=== PATIENT | male | born 1980 | race Caucasian/White ===

== ENCOUNTER 2024-12-08 13:53 | Emergency (ER) | payer BC, SELFPAY ==
[2024-12-08] VITALS (21 sets, daily range): BP systolic 123–154; BP diastolic 76–95; PULSE 75–91; RESP 12–20; TEMP 36.5–36.8; O2SAT 96–100
--- NOTE | ~2024-12-08 | XR_ITS ---
EXAMINATION: XR chest 1V portable DATE: 12/08/2024 14:25 INDICATION: Chest pain and throbbing left arm TECHNIQUE: frontal view of the chest was obtained. COMPARISON: Chest radiograph dated 04/10/2022 FINDINGS: The lungs are clear with no focal airspace opacities, pulmonary edema, pleural effusion or pneumothor ax. The cardiomediastinal silhouette is normal. Visualized bones and soft tissues are unremarkable. IMPRESSION: 1. No acute cardiopulmonary disease. Reviewed, dictated and finalized at location B. GY EFFICIENT SITE MANAGER
--- NOTE | 2024-12-08 14:03 | ED_ITS ---
HPI - Chest Pain General Chief Complaint: Chest Pain Stated Complaint: chest pain Time Seen by Provider: 12/08/24 14:03 Source: patient Mode of arrival: ambulatory Limitations: no limitations History of Present Illness HPI narrative: 44-year-old male with a history of smoking, Chronic anxiety, hypertension, maxillary sinusitis, chronic low back pain with L5 radiculopathy presents to the ED with a 3 day history of -- chest pain which starts on both sides of the chest and radiates to the front. He feels as squeezing like sensation of his chest. The pain usually lasts 1-2 minutes with spontaneous resolution. The pain comes on while he is resting. The pain radiates his down both his arms. He continues to have left arm numbness/weakness. He has had total 3 episodes of this pain. The 1st 2 episodes happened 3 days ago the last episode was noted today while he was sitting in his office. The pain lasted 1-2 minutes with spontaneous resolution. Pain is described as an aching feeling. No prior episodes of chest pain. MD complaint: chest pain Onset (ago): day(s) ( Three days) Timing of current episode: episodic Prior episodes: No Onset: during rest Pain location: lateral Pain radiation: right arm and left arm Quality: aching Relieving factors: nothing Exacerbating factors: nothing Treatment prior to arrival: none Risk Factors Coronary artery disease risk factors: smoking history Related Data Allergies Allergy/AdvReac Type Severity Reaction Status Date / Time No Known Allergies Allergy Verified 12/08/24 13:59 Review of Systems 2 Review of Systems: All systems reviewed & are unremarkable except as noted in HPI and below Constitutional: Constitutional: Reports as per HPI and Reports no additional constitutional complaints Eyes: Eyes: Reports as per HPI and Reports no additional eye complaints ENT: Reports system reviewed and no additional complaints, except as documented and Reports as per HPI Cardiovascular: Cardiovascular: Reports as per HPI, Reports no additional cardiovascular complaints and Reports chest pain Respiratory: Respiratory: Reports as per HPI and Reports no additional respiratory complaints Gastrointestinal: Gastrointestinal: Reports as per HPI and Reports no additional gastrointestinal complaints Genitourinary: Genitourinary: Reports no additional male genitourinary complaints and Reports as per HPI Musculoskeletal: Musculoskeletal: Reports no additional musculoskeletal complaints and Reports as per HPI Integumentary/Breasts: Skin/Breast: Reports system reviewed and no additional complaints, except as docu and Reports as per HPI Neurologic: Reports system reviewed and no additional complaints, except as documented and Reports as per HPI Psychiatric: Psychiatric: Reports no additional psychiatric complaints and Reports as per HPI Endocrine: Endocrine: Reports no additional endocrine complaints and Reports as per HPI Hematologic/Lymphatic: Hematologic/Lymphatic: Reports no additional hematologic/lymphatic complaints and Reports as per HPI Allergic/Immunologic: Allergic/Immunologic: Reports no additional allergic/immunologic complaints and Reports as per HPI Exam 2 Narrative: blood pressure 154/94. Temperature of 36.5?. Oxygen saturation of 97% on room air. Const: General: healthy appearing and no acute distress Nutritional Appearance: well nourished Orientation/consciousness: patient oriented x3 Limitations: no limitations HENMT: Head: normal to inspection Ears: external ears normal F alisa/Nose/Sinus: Normal external nose present Face and sinus: normal facial exam Mouth: Yes Normal oral and palatal mucosa present Throat: posterior oropharynx normal ( Pharyngeal erythema) Eyes: Conjunctivae: conjunctivae normal Pupils: Equal, round and reactive pupils present EOM: EOMs intact bilaterally Direct Ophthalmoscopy: no photophobia Neck: Neck: normal visual inspection, no lymphadenopathy and no meningeal signs Chest: Chest palpation & inspection: normal inspection of the chest Resp: Effort & Inspection: normal respiratory effort Auscultation: clear to auscultation bilaterally Cardio: Rate: regular rate Rhythm: regular rhythm GI: Auscultation: normal bowel sounds Other: no tenderness/rigidity /rebound. : General: Yes no CVA tenderness Back/Spine/Pelvis: Back: no CVA tenderness Skin: General skin exam: normal color Rashes: no rashes Wounds: no wounds Neuro: General: patient oriented x3 Cranial nerves: Yes Nystagmus not present Speech: normal speech Gait exam (Neuro): Normal gait present Extrem: General: normal to inspection and no clubbing, cyanosis or edema Psych: Mental Status: mental status grossly normal Affect: normal affect Attitude: cooperative Course Course Emergency Course: Chest pain-- EKG did not show any acute findings. The patient was noted to have a normal troponin. The patient is not tachycardic / has a normal respiratory rate of 19 an oxygen saturation of 97% on room air. chest x-ray did not show any acute findings anxiety Vital Signs Vital signs: Vital Signs Temperature 36.5 C 12/08/24 13:53 Pulse Rate 90 12/08/24 13:53 Respiratory Rate 20 01/15/25 13:53 Blood Pressure 154/94 H 12/08/24 13:53 Pulse Oximetry 97 12/08/24 13:53 Oxygen Delivery Room Air 12/08/24 13:53 Temperature 36.5 C 12/08/24 13:53 Pulse Rate 79 12/08/24 15:02 Respiratory Rate 19 12/08/24 15:02 Blood Pressure 127/91 H 12/08/24 14:46 Pulse Oximetry 97 12/08/24 15:02 Oxygen Delivery Room Air 12/08/24 13:55 MDM - Chest Pain MDM Narrative Medical decision making narrative: Chest wall pain anxiety Differential Diagnosis Differential diagnosis: Likely pneumothorax and stable angina Medical Records Data Attestation: I reviewed the patient's medical records. Lab Data 12/08/24 14:18 12/08/24 14:18 Labs: Lab Results 12/08/24 Range/Units 14:18 WBC 13.0 H (4.8-10.8) K/mm3 RBC 4.79 (4.70-6.10) M/mm3 Hgb 14.7 (14.0-18.0) g/dL Hct 43.1 (40.0-54.0) % MCV 90.0 (78.0-102.0) fL MCH 30.7 (27.0-31.0) pg MCHC 34.1 (32-36) g/dL RDW 12.0 (11.6-14.4) % Plt Count 243 (150-420) K/mm3 MPV 10.3 (8.7-11.0) fl Immature Gran % (Auto) 0.2 H (0.0-0.0) % Neut % (Auto) 51.7 (50.0-70.0) % Lymph % (Auto) 42.1 H (18.0-42.0) % [place] % (Auto) 4.9 (2.0-11.0) % Eos % (Auto) 0.9 L (1.0-6.0) % Baso % (Auto) 0.2 (0.0-1.0) % Lymph # (Auto) 5.46 H (1.10-4.50) K/mm3 [place] # (Auto) 0.64 (0.10-0.90) K/mm3 Eos # (Auto) 0.12 (0.02-0.50) K/mm3 Baso # (Auto) 0.03 (0.00-0.10) K/mm3 Abs Immat Gran (auto) 0.03 H (0.00-0.00) K/mm3 Absolute Neuts (auto) 6.69 (1.70-7.20) K/mm3 Absolute Nucleated RBC 0.00 (0.00-0.00) K/mm3 Nucleated RBC % 0.0 (0-0.0) % PT 10.6 (9.50-12.1) Seconds INR 1.0 APTT 27.2 (23.9-30.70) Sec Sodium 139 (136-145) mmol/L Potassium 4.0 (3.5-5.1) mmol/L Chloride 104 (98-108) mmol/L Carbon Dioxide 30 (21-32) mmol/L Anion Gap 5 (4-12) mmol/L BUN 15 (7-18) mg/dL Creatinine 1.26 (0.70-1.30) mg/dL Estim Creat Clear Calc 83 ml/min Estimated GFR > 60 (59 - ) Glucose 132 H (70-99) mg/dL Calculated Osmolality 290 (285-295) mOsm/kg Lactic Acid 1.3 (0.4-2.0) mmol/L Calcium 9.2 (8.5-10.1) mg/dL Total Bilirubin 0.4 (0.00-1.00) mg/dL AST 15 (15-37) U/L ALT 41 (16-63) U/L Alkaline Phosphatase 82 (46-116) U/L Troponin I < 4.0 (0.00-60.4) ng/L Total Protein 7.6 (6.4-8.2) g/dL Albumin 4.0 (3.4-5.0) g/dL ECG Data EKG #1: ECG completion date: 12/08/24 ECG completion time: 13:55 Interpretation: normal sinus rhythm normal axis. No ST elevation. Discharge Plan Discharge Clinical Impression: Atypical chest pain, Anxiety Patient Disposition: Home, Self-Care Condition: Stable Instructions: Antibiotic Form, Anxiety (ED), Chest Wall Pain (ED) Patient Language: Irish Follow-up/Referrals: Lenny Barcenas MD [Primary Care Provider] - Time of Disposition: 15:38
[2024-12-08] MEDS: ASPIRIN 81 MG CHEWABLE TABLET 324 MG PO (14:22)
[2024-12-08 14:27] LABS: Basophils Absolute Auto 0.03 K/mm3 (0.00-0.10); Basophils Percent Auto 0.2 % (0.0-1.0); Eosinophils Absolute Auto 0.12 K/mm3 (0.02-0.50); Eosinophils Percent Auto 0.9 % (1.0-6.0); Hematocrit 43.1 % (40.0-54.0); Hemoglobin 14.7 g/dL (14.0-18.0); Immature Granulocyte Absolute 0.03 K/mm3 (0.00-0.00); Immature Granulocyte Percent A 0.2 % (0.0-0.0); Lymphocytes Absolute Auto 5.46 K/mm3 (1.10-4.50); Lymphocytes Percent Auto 42.1 % (18.0-42.0); Mean Corpuscular HGB Conc 34.1 g/dL (32-36); Mean Corpuscular Hemoglobin 30.7 pg (27.0-31.0); Mean Platelet Volume 10.3 fl (8.7-11.0); Monocytes Absolute Auto 0.64 K/mm3 (0.10-0.90); Monocytes Percent Auto 4.9 % (2.0-11.0); Neutrophils Absolute Auto 6.69 K/mm3 (1.70-7.20); Neutrophils Percent Auto 51.7 % (50.0-70.0); Platelet Count Result 243 K/mm3 (150-420); Red Blood Count 4.79 M/mm3 (4.70-6.10)
[2024-12-08 14:42] LABS: Partial Thromboplastin Time 27.2 Sec (23.9-30.70); Prothrombin Time 10.6 Seconds (9.50-12.1)
[2024-12-08 14:44] LABS: Lactic Acid Reflex 1.3 mmol/L (0.4-2.0)
[2024-12-08 14:51] LABS: Alanine Aminotransferase 41 U/L (16-63); Alkaline Phosphatase 82 U/L (46-116); Anion Gap 5 mmol/L (4-12); Aspartate Amino Transferase 15 U/L (15-37); Bilirubin,Total 0.4 mg/dL (0.00-1.00); Blood Urea Nitrogen 15 mg/dL (7-18); Calcium 9.2 mg/dL (8.5-10.1); Carbon Dioxide 30 mmol/L (21-32); Chloride 104 mmol/L (98-108); Estimated CRCL calculation 83 ml/min; Estimated Glomerular Filt Rate > 60; Glucose 132 mg/dL (70-99); Osmolality Calculated 290 mOsm/kg (285-295); Sodium 139 mmol/L (136-145); Total Protein 7.6 g/dL (6.4-8.2)
[2024-12-08 14:54] LABS: Troponin I < 4.0 ng/L (0.00-60.4)
--- NOTE | 2024-12-08 15:54 | ECG_ITS ---
Test Date: 2024-12-08 13:55:36 Measurements Intervals [place] Rate: 88 P: 45 DC: 160 QRS: 51 QRSD: 98 T: 51 QT: 339 QTc: 411 Interpretive Statements SINUS RHYTHM LOW QRS VOLTAGE IN PRECORDIAL LEADS [QRS DEFLECTION < 1.0 mV IN CHEST LEADS] No previous ECG available for comparison Electronically Signed On 12-09-2024 09:15:50 BROADBAND TECHNICIAN by Natanael Ibarra M.D.
== END 2024-12-08 16:15 | disposition home or self-care (01) ==
PROVIDERS: Emergency Provider Internal Medicine Critical Care Medicine; PCP Internal Medicine
DX: R07.89 Other chest pain (principal); F41.9 Anxiety disorder, unspecified; I10 Essential (primary) hypertension
CPT/HCPCS: 36415; 71045; 80053; 83605; 84484; 85025; 85610; 85730; 93005; 99284; A9270

== ENCOUNTER 2024-12-30 17:20 | Emergency (ER) | payer BC, SELFPAY ==
[2024-12-30 17:20] VITALS: BP 130/93; PULSE 109; RESP 18; TEMP 38.5; O2SAT 95
--- OUTSIDE RECORDS SUMMARY | 2024-12-30 17:23 | XMS_ITS | Encounter Summary ---
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
--- OUTSIDE RECORDS SUMMARY | 2024-12-30 17:23 | XMS_ITS | Clinical Summary ---
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 Gender Identity Not on file Sexual Orientation Not on file Plan of Treatment Health Maintenance Due Date Last Done Comments Colorectal Cancer Screening Colonoscopy (10 Years) 1978 Annual Physical 1981 Hepatitis C 1996 DTaP, Tdap and Td Vaccines ( 1 - Tdap) 1997 Hepatitis B Vaccines (1 of 3 - 19+ 3-dose series) 1997 COVID-19 Vaccine (2023-2 5 season) 2024 Influenza Adult (#1) 2024 HPV Vaccines Aged Out No longer eligi ble based on patient's age to complete this topic Meningococcal B Vaccine Aged Out No l onger eligible based on patient's age to complete this topic Meningococcal Vaccine Aged Out No chance anushka eligible based on patient's age to complete this topic Pneumococcal Vaccine: Pediat rics (0 to 5 Years) and At-Risk Patients (6 to 64 Years) Aged Out No longer eligible b ased on patient's age to complete this topic RSV Immunizations Under 20 Months Aged Out No longer eligible based on patient's age to complete this topic
[2024-12-30] MEDS: IBUPROFEN 600 MG TABLET PO (17:26)
--- NOTE | 2024-12-30 17:30 | PC.NURSE ---
covid culture sent to lab
[2024-12-30 17:33] VITALS: O2SAT 95
--- NOTE | 2024-12-30 17:53 | ED.URI ---
HPI - URI/Sore Throat General Chief Complaint: Upper Respiratory Infection Stated Complaint: cold symptoms. Time Seen by Provider: 12/30/24 17:22 Source: patient Mode of arrival: ambulatory Limitations: no limitations History of Present Illness HPI Narrative: this is a 44-year-old male with no significant past medical history presents with a 3 day history of cough congestion nasal congestion body aches headache low-grade fever and chills with no shortness of breath no audible wheezing. MD elicited complaint: fever, cough, rhinorrhea and nasal congestion Onset (ago): day(s) Consistency: constant Severity: moderate Exacerbating factors: nothing Relieving factors: nothing Related Data Allergies Allergy/AdvReac Type Severity Reaction Status Date / Time No Known Allergies Allergy Verified 12/30/24 17:30 Review of Systems Review of Systems: All systems reviewed & are unremarkable except as noted in HPI and below PMFSH Past Medical History Medical History Patient denies medical problems Exam Const: General: no acute distress Nutritional Appearance: well nourished Orientation/consciousness: patient oriented x3 Limitations: no limitations HENMT: Head: normal to inspection Eyes: Conjunctivae: conjunctivae normal Chest: Chest palpation & inspection: normal inspection of the chest Resp: Effort & Inspection: normal respiratory effort Auscultation: clear to auscultation bilaterally Cardio: Rate: regular rate Rhythm: regular rhythm : General: Yes bladder normal to palpation Urinary Catheter: Urinary Catheter: patent and draining Skin: General skin exam: normal color Rashes: no rashes Extrem: General: normal to inspection and no clubbing, cyanosis or edema Course Course Emergency Course: patient given a dose of ibuprofen, COVID RSV influenza performed and reviewed with patient. Vital Signs Vital signs: Vital Signs Temperature 38.5 C H 12/30/24 17:20 Pulse Rate 109 H 12/30/24 17:20 Respiratory Rate 18 12/30/24 17:20 Blood Pressure 130/93 H 12/30/24 17:20 Pulse Oximetry 95 12/30/24 17:20 Temperature 36.4 C 12/30/24 18:40 Pulse Rate 88 12/30/24 18:40 Respiratory Rate 17 12/30/24 18:40 Blood Pressure 126/89 12/30/24 18:40 Pulse Oximetry 96 12/30/24 18:40 Oxygen Delivery Room Air 12/30/24 18:40 MDM - URI/Sore Throat Lab Data Labs: Lab Results 12/30/24 Range/Units 17:34 Influenza A (RT-PCR) Positive A (Negative) Influenza B (RT-PCR) Negative (Negative) RSV (RT-PCR) Negative (Negative) SARS-CoV-2 RNA (RT-PCR) Negative (Negative) Critical Care Time Critical Care Time Critical Care Time: No Discharge Plan Discharge Clinical Impression: Influenza Patient Disposition: Home, Self-Care Condition: Stable Instructions: Antibiotic Form, Influenza (ED) Additional Instructions: advised take medication as prescribed and follow up with primary if symptoms persist or worsen. Patient Language: Portuguese Prescriptions: New oseltamivir [Tamiflu] 75 mg capsule 75 mg PO Q12H 5 Days Qty: 10 0RF Follow-up/Referrals: Lenny Barcenas MD [Primary Care Provider] - Stand Alone Forms: Work/School Release IP Time of Disposition: 18:33
--- OUTSIDE RECORDS SUMMARY | 2024-12-30 17:58 | XMS_ITS | Encounter Summary ---
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
--- OUTSIDE RECORDS SUMMARY | 2024-12-30 17:58 | XMS_ITS | Clinical Summary ---
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
[2024-12-30 18:14] LABS: SARS-CoV-2 RNA PCR Negative (Negative)
[2024-12-30 18:19] LABS: Influenza A QL RT-PCR Positive (Negative); Influenza B QL RT-PCR Negative (Negative); RSV RNA, RT-PCR Negative (Negative)
[2024-12-30 18:40] VITALS: BP 126/89; PULSE 88; RESP 17; TEMP 36.4; O2SAT 96
== END 2024-12-30 18:40 | disposition home or self-care (01) ==
PROVIDERS: Emergency Provider Emergency Medicine; PCP Internal Medicine
DX: J11.1 Influenza due to unidentified influenza virus with other respiratory manifestations (principal); Z20.822 Contact with and (suspected) exposure to COVID-19
CPT/HCPCS: 87637; 99283; A9270